=== PATIENT | female | born 1950 | race Caucasian/White ===

== ENCOUNTER 2019-09-17 18:21 | Emergency (ER) | payer OTHER ==
[2019-09-17 18:30] VITALS: BP 161/73; PULSE 81; TEMP 98.4; BMI 32.9
[2019-09-17] MEDS ORDERED: IBUPROFEN 600 MG TABLET (FP) PO ONE ×2 (18:39→19:10)
[2019-09-17] MEDS ORDERED: LIDOCAINE 5% TOPICAL PATCH TP ONE (18:39)
[2019-09-17] MEDS ORDERED: ACETAMINOPHEN 325 MG TABLET (FP) PO ONE (18:39)
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
[2019-09-17] MEDS ORDERED: CYCLOBENZAPRINE HCL 5 MG TABLET PO ONE (18:45)
[2019-09-17] MEDS ORDERED: LIDOCAINE 5% TOPICAL PATCH ONE (19:10)
[2019-09-17] MEDS ORDERED: CYCLOBENZAPRINE HCL 10 MG TABLET (FP) ONE (19:10)
[2019-09-17] MEDS ORDERED: ACETAMINOPHEN 325 MG TABLET (FP) ONE (19:10)
[2019-09-17] MEDS ORDERED: LIDOCAINE PATCH REMOVAL MC SCH (22:00)
== END 2019-09-17 19:15 | disposition home or self-care (01) ==
LOC: FER 18:21
DX: M54.6 Pain in thoracic spine (principal); V43.62XA Car passenger injured in collision with other type car in traffic accident, initial encounter; Y93.89 Activity, other specified; Y92.410 Unspecified street and highway as the place of occurrence of the external cause; I10 Essential (primary) hypertension; E78.5 Hyperlipidemia, unspecified; K21.9 Gastro-esophageal reflux disease without esophagitis; M19.90 Unspecified osteoarthritis, unspecified site; J45.909 Unspecified asthma, uncomplicated
CPT/HCPCS: 99282-25